=== PATIENT | female | born 1975 | race African-American/Black ===

== ENCOUNTER 2021-03-07 10:07 | Outpatient (CLI) | payer BC | END 2021-03-07 10:08 | disposition home or self-care (01) | LOC: CSHWCC 10:07 | PROVIDERS: ATTEND Nurse Practitioner Family | DX: T88.8XXD Other specified complications of surgical and medical care, not elsewhere classified, subsequent encounter (principal); T81.30XD Disruption of wound, unspecified, subsequent encounter; S31.603D Unspecified open wound of abdominal wall, right lower quadrant with penetration into peritoneal cavity, subsequent encounter; S31.60 Unspecified open wound of abdominal wall with penetration into peritoneal cavity | CPT/HCPCS: 11042; 99203; G0463 ==

== ENCOUNTER 2021-03-09 10:14 | Outpatient (CLI) | payer BC | END 2021-03-09 10:15 | disposition home or self-care (01) | LOC: CSHWCC 10:14 | PROVIDERS: ATTEND Nurse Practitioner Family | DX: T81.30XD Disruption of wound, unspecified, subsequent encounter (principal); T88.8XXD Other specified complications of surgical and medical care, not elsewhere classified, subsequent encounter; S31.603D Unspecified open wound of abdominal wall, right lower quadrant with penetration into peritoneal cavity, subsequent encounter; S31.60 Unspecified open wound of abdominal wall with penetration into peritoneal cavity | CPT/HCPCS: 99212; G0463 ==

== ENCOUNTER 2021-03-11 08:48 | Outpatient (CLI) | payer BC | END 2021-03-11 08:49 | disposition home or self-care (01) | LOC: CSHWCC 08:48 | PROVIDERS: ATTEND Nurse Practitioner Family | DX: S31.603D Unspecified open wound of abdominal wall, right lower quadrant with penetration into peritoneal cavity, subsequent encounter (principal); S31.60 Unspecified open wound of abdominal wall with penetration into peritoneal cavity; T81.30XD Disruption of wound, unspecified, subsequent encounter; T88.8XXD Other specified complications of surgical and medical care, not elsewhere classified, subsequent encounter | CPT/HCPCS: 99212; G0463 ==

== ENCOUNTER 2021-03-14 10:24 | Outpatient (CLI) | payer BC | END 2021-03-14 10:25 | disposition home or self-care (01) | LOC: CSHWCC 10:24 | PROVIDERS: ATTEND Nurse Practitioner Family | DX: T81.30XS Disruption of wound, unspecified, sequela (principal); S31.109D Unspecified open wound of abdominal wall, unspecified quadrant without penetration into peritoneal cavity, subsequent encounter; S31.603D Unspecified open wound of abdominal wall, right lower quadrant with penetration into peritoneal cavity, subsequent encounter; S31.60 Unspecified open wound of abdominal wall with penetration into peritoneal cavity; T88.8XXS Other specified complications of surgical and medical care, not elsewhere classified, sequela | CPT/HCPCS: 99212; G0463 ==

== ENCOUNTER 2021-03-22 10:56 | Outpatient (CLI) | payer BC | END 2021-03-22 10:57 | disposition home or self-care (01) | LOC: CSHWCC 10:56 | PROVIDERS: ATTEND Nurse Practitioner Family | DX: T88.8XXD Other specified complications of surgical and medical care, not elsewhere classified, subsequent encounter (principal); T81.30XD Disruption of wound, unspecified, subsequent encounter; S31.603D Unspecified open wound of abdominal wall, right lower quadrant with penetration into peritoneal cavity, subsequent encounter; S31.60 Unspecified open wound of abdominal wall with penetration into peritoneal cavity | CPT/HCPCS: 97605; 97607; 99213; G0463 ==